=== PATIENT | female | born 1925 | race Caucasian/White ===

== ENCOUNTER 2016-10-11 15:15 | Inpatient (IN) | payer MEDICARE, OTHER ==
[2016-10-11] MEDS ORDERED: SODIUM CHLORIDE 0.9% 1,000 ML IV STA (15:49)
[2016-10-11 16:14] LABS: Basophils % (A) 0 %; CH 28.5; CHCM 31.1; Eosinophils # (A) 0.1 k/uL (0-0.7); Eosinophils % (A) 1 %; HCT 42.9 % (34.0-46.0); HDW 2.38; HGB 13.5 gm/dL (11.4-16.0); Hypochromasia Slight; Luc # (Auto) 0.09; Luc % (Auto) 1; Lymphocytes # (A) 0.9 k/uL (1.0-4.8); Lymphocytes % (A) 9 %; MCH 28.9 pg (25.0-35.0); MCHC 31.4 g/dL (31.0-37.0); Mean Platelet Volume 6.9; Monocytes # (A) 0.5 k/uL (0-1.0); Monocytes % (A) 5 %; Neutrophils # (A) 8.5 k/uL (1.3-7.7); Neutrophils % (A) 84 %; RBC 4.66 m/uL (3.80-5.40); RDW 14.5 % (11.5-15.5); WBC 10.1 k/uL (3.8-10.6); WBC (Perox) 9.95
--- NOTE | 2016-10-11 16:16 | ED ---
General Adult HPI - General Chief complaint: Extremity Injury, Lower Stated complaint: Fall Time Seen by Provider: 10/11/16 15:40 Source: patient, family, RN notes reviewed, old records reviewed Mode of arrival: EMS Limitations: altered mental status - History of Present Illness Initial comments: This is a 89-year-old female who ER for evaluation. Patient brought in the ER for evaluation of multiple issues multiple falls weakness debility incontinence. Patient has multiple falls of recent, hip pain and bilateral ankle pain. Patient herself is unable to contribute to the history history is obtained from her who is at bedside. - Related Data Home Medications Medication Instructions Recorded Confirmed Acetaminophen Tab [Tylenol] 500 mg PO Q4H PRN 11/19/13 10/11/16 Aspirin 81 mg PO HS 11/19/13 10/11/16 Cholecalciferol [Vitamin D3] 400 unit PO DAILY@1200 11/19/13 10/11/16 Levothyroxine Sodium [Synthroid] 50 mcg PO DAILY 11/19/13 10/11/16 Memantine [Namenda] 5 mg PO BID 11/19/13 10/11/16 Sertraline [Zoloft] 50 mg PO DAILY 11/19/13 10/11/16 Clotrimazole/Betameth Cream 1 applic TOPICAL DAILY 01/09/14 10/11/16 [Lotrisone Cream] Dexlansoprazole [Dexilant] 60 mg PO DAILY 10/11/16 10/11/16 HYDROcodone/APAP 10-325MG [Issue 1 tab PO Q6H PRN 10/11/16 10/11/16 10-325] Metoprolol Tartrate 25 mg PO DAILY 10/11/16 10/11/16 Nystatin 100,000Unit/gm Cream 1 applic TOPICAL BID 10/11/16 10/11/16 [Mycostatin Cream] Potassium Chloride [Klor-Con 20] 20 meq PO DAILY 10/11/16 10/11/16 Previous Rx's Medication Instructions Recorded Docusate [Colace] 100 mg PO DAILY #30 capsule 11/19/13 Allergies Allergy/AdvReac Type Severity Reaction Status Date / Time codeine Allergy Unknown Verified 10/11/16 16:02 Review of Systems ROS Statement: Those systems with pertinent positive or pertinent negative responses have been documented in the HPI. ROS Other: All systems not noted in ROS Statement are negative. Past Medical History Past Medical History: CVA/TIA, Dementia, GERD/Reflux, Musculoskeletal Disorder, Pneumonia, Rheumatoid Arthritis (RA), Thyroid Disorder Additional Past Medical History / Comment(s): 2013 HEAD INJURY, SHINGLES (RT EYE )SINUS PROBLEMS,PNEUMOTHORAX, UTI, URINARY INCONTINENCE,ARTHRITIS, kidney stones , fx vertebrea History of Any Multi-Drug Resistant Organisms: MRSA Date of last positivie culture/infection: 11-26-13 MDRO Source:: Urine Past Surgical History: Appendectomy, Cholecystectomy Additional Past Surgical History / Comment(s): VEIN STRIPPING, CATARACTS, BUNIONECTOMY Past Anesthesia/Blood Transfusion Reactions: No Reported Reaction Past Psychological History: No Psychological Hx Reported Smoking Status: Never smoker Past Alcohol Use History: None Reported Past Drug Use History: None Reported General Exam Limitations: altered mental status General appearance: alert, in no apparent distress Head exam: Present: atraumatic, normocephalic, normal inspection Eye exam: Present: normal appearance, PERRL, EOMI. Absent: scleral icterus, conjunctival injection, periorbital swelling ENT exam: Present: normal exam, mucous membranes moist Neck exam: Present: normal inspection. Absent: tenderness, meningismus, lymphadenopathy Respiratory exam: Present: normal lung sounds bilaterally. Absent: respiratory distress, wheezes, rales, rhonchi, stridor Cardiovascular Exam: Present: regular rate, normal rhythm, normal heart sounds. Absent: systolic murmur, diastolic murmur, rubs, gallop, clicks GI/Abdominal exam: Present: soft, normal bowel sounds. Absent: distended, tenderness, guarding, rebound, rigid Extremities exam: Present: normal inspection, full ROM, normal capillary refill , other (Swelling and erythema, ecchymosis to right ankle). Absent: tenderness , pedal edema, joint swelling, calf tenderness Back exam: Present: normal inspection Neurological exam: Present: alert, oriented X3, CN II-XII intact Psychiatric exam: Present: normal affect, normal mood Skin exam: Present: warm, dry, intact, normal color. Absent: rash Course Vital Signs 10/11/16 10/11/16 15:31 17:18 Temperature 98.3 F Pulse Rate 98 92 Respiratory 16 18 Rate Blood Pressure 122/67 137/56 O2 Sat by Pulse 94 L 95 Oximetry - Reevaluation(s) Reevaluation #1: 10/11/16 17:50 Patient is unable to ambulate, complaining of severe ankle pain, severe back pain Medical Decision Making - Medical Decision Making 89 female ER with frequent falls, patient sustaining right ankle fracture compression fractures of lumbar spine. There is also found to have urinary tract infection, will admit for pain control and orthopedic evaluation and IV antibiotics - Lab Data Result diagrams: 10/11/16 16:03 10/11/16 16:03 Lab Results 10/11/16 10/11/16 10/11/16 Range/Units 16:03 16:03 16:03 WBC 10.1 (3.8-10.6) k/uL RBC 4.66 (3.80-5.40) m/uL Hgb 13.5 (11.4-16.0) gm/dL Hct 42.9 (34.0-46.0) % MCV 92.0 (80.0-100.0) fL MCH 28.9 (25.0-35.0) pg MCHC 31.4 (31.0-37.0) g/dL RDW 14.5 (11.5-15.5) % Plt Count 250 (150-450) k/uL Neutrophils % 84 % Lymphocytes % 9 % Monocytes % 5 % Eosinophils % 1 % Basophils % 0 % Neutrophils # 8.5 H (1.3-7.7) k/uL Lymphocytes # 0.9 L (1.0-4.8) k/uL Monocytes # 0.5 (0-1.0) k/uL Eosinophils # 0.1 (0-0.7) k/uL Basophils # 0.0 (0-0.2) k/uL Hypochromasia Slight PT (9.0-12.0) sec INR (<1.1) APTT (22.0-30.0) sec Sodium 141 (137-145) mmol/L Potassium 4.1 (3.5-5.1) mmol/L Chloride 103 (98-107) mmol/L Carbon Dioxide 29 (22-30) mmol/L Anion Gap 9 mmol/L BUN 17 (7-17) mg/dL Creatinine 0.80 (0.52-1.04) mg/dL Est GFR (MDRD) Af Amer >60 (>60 ml/min/1.73 sqM) Est GFR (MDRD) Non-Af >60 (>60 ml/min/1.73 sqM) Glucose 128 H (74-99) mg/dL Calcium 10.1 (8.4-10.2) mg/dL Phosphorus 3.2 (2.5-4.5) mg/dL Magnesium 1.8 (1.6-2.3) mg/dL Total Bilirubin 0.9 (0.2-1.3) mg/dL AST 30 (14-36) U/L ALT 34 (9-52) U/L Alkaline Phosphatase 41 (38-126) U/L Total Creatine Kinase 114 (30-135) U/L CK-MB (CK-2) 1.5 (0.0-2.4) ng/mL CK-MB (CK-2) Rel Index 1.3 Troponin I <0.012 (0.000-0.034) ng/mL Total Protein 6.9 (6.3-8.2) g/dL Albumin 3.9 (3.5-5.0) g/dL TSH 1.540 (0.465-4.680) mIU/L Urine Color Urine Appearance (Clear) Urine pH (5.0-8.0) Ur Specific [place] (1.001-1.035) Urine Protein (Negative) Urine Glucose (UA) (Negative) Urine Ketones (Negative) Urine Blood (Negative) Urine Nitrite (Negative) Urine Bilirubin (Negative) Urine Urobilinogen (<2.0) mg/dL Ur Leukocyte Esterase (Negative) Urine RBC (0-5) /hpf Urine WBC (0-5) /hpf Ur Squamous Epith Cells (0-4) /hpf Urine Bacteria (None) /hpf 10/11/16 10/11/16 Range/Units 16:03 17:17 WBC (3.8-10.6) k/uL RBC (3.80-5.40) m/uL Hgb (11.4-16.0) gm/dL Hct (34.0-46.0) % MCV (80.0-100.0) fL MCH (25.0-35.0) pg MCHC (31.0-37.0) g/dL RDW (11.5-15.5) % Plt Count (150-450) k/uL Neutrophils % % Lymphocytes % % Monocytes % % Eosinophils % % Basophils % % Neutrophils # (1.3-7.7) k/uL Lymphocytes # (1.0-4.8) k/uL Monocytes # (0-1.0) k/uL Eosinophils # (0-0.7) k/uL Basophils # (0-0.2) k/uL Hypochromasia PT 10.2 (9.0-12.0) sec INR 1.0 (<1.1) APTT 20.3 L (22.0-30.0) sec Sodium (137-145) mmol/L Potassium (3.5-5.1) mmol/L Chloride (98-107) mmol/L Carbon Dioxide (22-30) mmol/L Anion Gap mmol/L BUN (7-17) mg/dL Creatinine (0.52-1.04) mg/dL Est GFR (MDRD) Af Amer (>60 ml/min/1.73 sqM) Est GFR (MDRD) Non-Af (>60 ml/min/1.73 sqM) Glucose (74-99) mg/dL Calcium (8.4-10.2) mg/dL Phosphorus (2.5-4.5) mg/dL Magnesium (1.6-2.3) mg/dL Total Bilirubin (0.2-1.3) mg/dL AST (14-36) U/L ALT (9-52) U/L Alkaline Phosphatase (38-126) U/L Total Creatine Kinase (30-135) U/L CK-MB (CK-2) (0.0-2.4) ng/mL CK-MB (CK-2) Rel Index Troponin I (0.000-0.034) ng/mL Total Protein (6.3-8.2) g/dL Albumin (3.5-5.0) g/dL TSH (0.465-4.680) mIU/L Urine Color Yellow Urine Appearance Cloudy H (Clear) Urine pH 5.5 (5.0-8.0) Ur Specific [place] 1.015 (1.001-1.035) Urine Protein Trace H (Negative) Urine Glucose (UA) Negative (Negative) Urine Ketones Negative (Negative) Urine Blood Trace H (Negative) Urine Nitrite Negative (Negative) Urine Bilirubin Negative (Negative) Urine Urobilinogen <2.0 (<2.0) mg/dL Ur Leukocyte Esterase Large H (Negative) Urine RBC 10 H (0-5) /hpf Urine WBC 39 H (0-5) /hpf Ur Squamous Epith Cells 4 (0-4) /hpf Urine Bacteria Many H (None) /hpf Disposition Clinical Impression: UTI (urinary tract infection), Weakness, Falls frequently, Mechanical back pain , Lumbar compression fracture, Closed right ankle fracture Disposition: ADMITTED IP TO THIS HOSP Condition: Fair Referrals: Bear Olvera DO [Primary Care Provider] - 1-2 days
[2016-10-11 16:30] LABS: Prothrombin Time 10.2 sec (9.0-12.0)
[2016-10-11 16:35] LABS: ALT 34 U/L (9-52); AST 30 U/L (14-36); Alkaline Phosphatase 41 U/L (38-126); Anion Gap 9 mmol/L; Blood Urea Nitrogen 17 mg/dL (7-17); Calcium 10.1 mg/dL (8.4-10.2); Carbon Dioxide 29 mmol/L (22-30); Chloride 103 mmol/L (98-107); Glucose 128 mg/dL (74-99); Magnesium 1.8 mg/dL (1.6-2.3); Non-African American GFR(MDRD) >60 (>60 ml/min/1.73 sqM); Phosphorous 3.2 mg/dL (2.5-4.5); Potassium 4.1 mmol/L (3.5-5.1); Sodium 141 mmol/L (137-145); Total Bilirubin 0.9 mg/dL (0.2-1.3); Total Protein 6.9 g/dL (6.3-8.2)
[2016-10-11 16:41] LABS: Creatine Kinase 114 U/L (30-135)
[2016-10-11 16:49] LABS: Partial Thromboplastin Time 20.3 sec (22.0-30.0)
[2016-10-11 16:54] LABS: Creatine Kinase MB 1.5 ng/mL (0.0-2.4); Troponin I <0.012 ng/mL (0.000-0.034)
--- NOTE | 2016-10-11 17:14 | XR ---
EXAMINATION TYPE: XR chest 2V DATE OF EXAM: 10/11/2016 5:09 PM COMPARISON: 01/11/2014 HISTORY: Pain TECHNIQUE: Frontal and lateral views of the chest are obtained. FINDINGS: There is a poor inspiration. There is some infiltrate and atelectasis at the lung bases. T here is large hiatal hernia. There is no heart failure. IMPRESSION: Hiatal hernia. Mild infiltrate and atelectasis at the lung bases is worse than last exam . Old healed left-sided rib fractures noted. No pneumothorax.
--- NOTE | 2016-10-11 17:16 | XR ---
EXAMINATION TYPE: XR ankle complete bilateral DATE OF EXAM: 10/11/2016 5:09 PM COMPARISON: NONE HISTORY: Pain after a fall TECHNIQUE: 6 views FINDINGS: There is nondisplaced fracture of the distal fibula of the right ankle. There is right-side d soft tissue swelling. There is no dislocation. There are bilateral plantar and Achilles calcaneal s purs. There is bilateral spurring at the talonavicular joint. I see no definite fracture of the left ankle. There is some osteopenia around both ankle joints. IMPRESSION: Acute fracture of the right distal fibula. Soft tissue swelling. Osteopenia.
--- NOTE | 2016-10-11 17:19 | XR ---
EXAMINATION TYPE: XR knee complete bilateral DATE OF EXAM: 10/11/2016 5:09 PM COMPARISON: NONE HISTORY: Pain after a fall TECHNIQUE: 6 views FINDINGS: There is narrowing of all the joint spaces. There is calcification of the menisci. There is mild bilateral genu valgus. There is a right sided knee joint effusion. I see no definite fracture. IMPRESSION: Moderate osteoarthritis and chondrocalcinosis. Right knee joint effusion. No fracture see n.
--- NOTE | 2016-10-11 17:21 | XR ---
EXAMINATION TYPE: XR pelvis AP view DATE OF EXAM: 10/11/2016 5:09 PM COMPARISON: 03/17/2015 HISTORY: Pain TECHNIQUE: 2 views FINDINGS: The pelvic ring appears intact. There is moderate narrowing of the hip joint spaces with sp ur formation. Sacroiliac joints are normal. There is a 1 cm calcification in the pelvis to the right of midline of uncertain significance. IMPRESSION: No fracture. Moderate osteoarthritis in the hip joints. No change compared to old exam.
--- NOTE | 2016-10-11 17:23 | XR ---
EXAMINATION TYPE: XR lumbosacral spine min 4V DATE OF EXAM: 10/11/2016 5:09 PM COMPARISON: NONE HISTORY: Low back pain TECHNIQUE: 5 views FINDINGS: There is 1 cm anterior subluxation of L5 in relation to S1. There is 10% compression deform ity of L4. There is 25% anterior wedging of L3. There is 70% wedging of L2 with old vertebroplasty. T here is 75% anterior wedging of L1. The sacroiliac joints appear normal. There is osteopenia. Abdomin al aorta is atheromatous. IMPRESSION: There is a degenerative first-degree L5-S1 spondylolisthesis. Multiple compression fractu res. There is progression of the compression fracture at L1 compared to old exam. There are new fract ures at L3 and L4.
[2016-10-11] MEDS ORDERED: MORPHINE SULFATE 4 MG/ML SYRINGE IVP STA (17:33)
[2016-10-11 17:41] LABS: Appearance,Urine Cloudy (Clear); Bacteria,Urine Many /hpf; Bilirubin,Urine Negative (Negative); Glucose,Urine (UA) Negative (Negative); Ketones,Urine Negative (Negative); Leukocyte Esterase,Urine Large (Negative); Nitrite,Urine Negative (Negative); PH, Urine 5.5 (5.0-8.0); Particle Count 32461; Protein,Urine Trace (Negative); RBC,Urine 10 /hpf (0-5); Specific Gravity,Urine 1.015 (1.001-1.035); Squamous Epithelial Cell,Urine 4 /hpf (0-4); UA Billing (MACRO vs. MICRO) MICRO; Urobilinogen,Urine <2.0 mg/dL (<2.0); WBC,Urine 39 /hpf (0-5)
[2016-10-11] MEDS ORDERED: MORPHINE SULFATE 4 MG/ML SYRINGE IVP PRN (17:50)
[2016-10-11] MEDS ORDERED: SODIUM CHLORIDE 0.9% 1,000 ML IV ONE (17:51)
[2016-10-11] MEDS ORDERED: HYDROcodone/APAP 10-325MG 1 EACH TAB PO PRN (20:13)
[2016-10-11] MEDS: NYSTATIN 100,000UNIT/GM CREAM 30 GM TUBE TOPICAL SCH (21:09)
[2016-10-11] MEDS: MEMANTINE 5 MG TAB PO SCH (21:09)
[2016-10-11] MEDS: HYDROmorphone 1 MG/ML 1 ML SYRINGE IVP PRN (22:00)
[2016-10-12] MEDS: HYDROmorphone 1 MG/ML 1 ML SYRINGE IVP PRN ×3 (01:17→18:16)
[2016-10-12] MEDS: LEVOTHYROXINE 50 MCG TAB PO SCH (04:53)
[2016-10-12] MEDS ORDERED: cefTRIAXone 1,000 MG in SODIUM CHLORIDE 0.9% 100 ML IVPB SCH (09:00)
[2016-10-12] MEDS: METOPROLOL TARTRATE 25 MG TAB PO SCH (09:23)
[2016-10-12] MEDS: CHOLECALCIFEROL 400 UNIT TAB PO SCH (10:03)
[2016-10-12] MEDS: MEMANTINE 5 MG TAB PO SCH ×2 (10:04→21:00)
[2016-10-12] MEDS: SERTRALINE 50 MG TAB PO SCH (10:04)
[2016-10-12] MEDS: DOCUSATE 100 MG CAP PO SCH (10:04)
[2016-10-12] MEDS: PANTOPRAZOLE 40 MG TABLET PO SCH (10:04)
--- NOTE | 2016-10-12 10:23 | P.CNOR ---
History of Present Illness - [facility] Consult date: 10/12/16 Consult reason: fracture (Compression fractures lumbar spine, right distal fibula fracture) History of present illness: This is an 89-year-old female admitted through the emergency department yesterday after falling and sustaining injury to her low back and right ankle. On exam and x-ray in the emergency department she was found to have multiple compression deformities to the lumbar spine as well as a right distal fibular fracture. She is admitted to internal medicine and we are consulted for orthopedic evaluation. She has history of kyphoplasty of L2 the past with Dr. Son. Past Medical History Past Medical History: CVA/TIA, Dementia, GERD/Reflux, Musculoskeletal Disorder, Pneumonia, Rheumatoid Arthritis (RA), Thyroid Disorder Additional Past Medical History / Comment(s): 2013 HEAD INJURY, SHINGLES (RT EYE )SINUS PROBLEMS,PNEUMOTHORAX, UTI, URINARY INCONTINENCE,ARTHRITIS, kidney stones , fx vertebrea History of Any Multi-Drug Resistant Organisms: MRSA Year Discovered:: 11-26-13 MDRO Source:: Urine Past Surgical History: Appendectomy, Cholecystectomy Additional Past Surgical History / Comment(s): VEIN STRIPPING, CATARACTS, BUNIONECTOMY Past Anesthesia/Blood Transfusion Reactions: No Reported Reaction Past Psychological History: No Psychological Hx Reported Smoking Status: Never smoker Past Alcohol Use History: None Reported Past Drug Use History: None Reported Medications and Allergies Home Medications Medication Instructions Recorded Confirmed Type Acetaminophen Tab [Tylenol] 500 mg PO Q4H PRN 11/19/13 10/11/16 History Aspirin 81 mg PO HS 11/19/13 10/11/16 History Cholecalciferol [Vitamin D3] 400 unit PO DAILY@1200 11/19/13 10/11/16 History Levothyroxine Sodium [Synthroid] 50 mcg PO DAILY 11/19/13 10/11/16 History Memantine [Namenda] 5 mg PO BID 11/19/13 10/11/16 History Sertraline [Zoloft] 50 mg PO DAILY 11/19/13 10/11/16 History Clotrimazole/Betameth Cream 1 applic TOPICAL DAILY 01/09/14 10/11/16 History [Lotrisone Cream] Dexlansoprazole [Dexilant] 60 mg PO DAILY 10/11/16 10/11/16 History HYDROcodone/APAP 10-325MG [[place] 1 tab PO Q6H PRN 10/11/16 10/11/16 History 10-325] Metoprolol Tartrate 25 mg PO DAILY 10/11/16 10/11/16 History Nystatin 100,000Unit/gm Cream 1 applic TOPICAL BID 10/11/16 10/11/16 History [Mycostatin Cream] Potassium Chloride [Klor-Con 20] 20 meq PO DAILY 10/11/16 10/11/16 History Allergies Allergy/AdvReac Type Severity Reaction Status Date / Time codeine Allergy Unknown Verified 10/11/16 16:02 Physical Examination This is a pleasant 89-year-old female in no acute distress. She is alert with some confusion. She is lying on her right side and appears fairly comfortable. Exam of the head and neck is unremarkable. There is no pain to palpation about cervical spine or paraspinal musculature. Exam of the lumbar spine reveals tenderness about the lower lumbar region. There is minimal tenderness to palpation about the thoracic spine and upper lumbar spine. Exam of the lower extremities reveals a splint in place to the right lower extremity. She has full toe motion without difficulty or pain. There is no hip irritability noted. Neurovascular status to the lower extremities is intact. Results X-rays of the pelvis reveals no fractures. She has minor degenerative arthritis to bilateral hips. X-ray of the knees reveals moderate to severe degenerative arthritis bilaterally. No acute fractures identified. X-ray of the lumbar spine reveals compression deformities to L1 L3 and L4. There is evidence of kyphoplasty of L2. There is anterolisthesis of L5 on S1. X-ray of the right ankle reveals a minimally displaced distal fibular fracture. - Labs Result Diagrams: 10/11/16 16:03 10/11/16 16:03 Assessment and Plan (1) Closed right ankle fracture Status: Acute (2) Falls frequently Status: Acute (3) Lumbar compression fracture Status: Acute (4) UTI (urinary tract infection) Status: Acute (5) Back pain Status: Acute Plan: The clinical and exercises are discussed the patient and her . I have recommended a lumbar brace which knee has been refusing at this point. He states that she will not tolerate her brace. He is requesting that she undergo kyphoplasty. I will consult Dr. Son for further evaluation. With regard to the ankle fracture, she'll be placed in an equalizer boot for immobilization. She may bear weight as tolerated in the boot with a walker. She may resume her diet today. I will make further recommendations after reviewing the case with Dr. Son.
[2016-10-12] MEDS: ACETAMINOPHEN TAB 500 MG TAB PO PRN ×2 (11:21→18:03)
[2016-10-12 11:29] VITALS: BMI 26.6
--- NOTE | 2016-10-12 12:41 | P.HPIM ---
History of Present Illness H&P Date: 10/12/16 Chief Complaint: Fall/Right Fibula Fracture/UTI This is an 89-year-old female one of Dr. Olvera with a previous medical history significant for hypertension and hypertensive cardiovascular disease, os process, multiple compression fracture with prior kyphoplasty, recurrent UTI, vascular dementia, patient was in her usual state of health about last Friday when she fell at home and bruised herself, her assisted her that time. Patient did not have any significant pain, yesterday the patient was going to the bathroom and while she was in the bathroom she stood up using the the assisted bars and her was trying to pull up her brief, where the patient lost strength in her leg and she sat on her right leg she suffered from significant pain at that time. Patient ended up coming to the ER at [facility] via EMS and she was found to have a right distal fibular fracture and multiple compression fracture in the back, patient was seen and evaluated by orthopedic surgery and spine surgery,it was recommended for the patient to be in a boot, and to see spine surgery on Friday to see the patient can be a candidate for cement kyphoplasty, patient also was found to have a UTI her urine was sent for culture and she was started on Rocephin 1 g IV piggyback every day, upon talking to the he stated that the patient has been dealing with urinary tract infections quite along with multiple resistant bacteria in the past . Review of Systems Constitutional: Reports chronic pain, Reports fatigue, Reports weakness, Denies anorexia, Denies lethargy, Denies weight loss Eyes: denies blurred vision, denies bulging eye, denies decreased vision Ears: bilateral: decreased hearing Ears, nose, mouth and throat: Denies dysphagia, Denies neck lump, Denies swelling in throat, Denies sore throat Cardiovascular: Reports dyspnea on exertion, Reports high blood pressure, Denies chest pain, Denies decreased exercise tolerance, Denies phlebitis, Denies rapid heart beat, Denies shortness of breath, Denies syncope Respiratory: Reports dyspnea, Denies congestion, Denies cough, Denies cough with sputum, Denies home oxygen, Denies sleep apnea, Denies snoring, Denies wheezing Gastrointestinal: Denies abdominal pain, Denies bloating, Denies BRBPR, Denies change in bowel habits, Denies hematemesis, Denies melena, Denies nausea, Denies vomiting Genitourinary: Denies dysuria, Denies hematuria Menstruation: Reports postmenopausal Musculoskeletal: Reports fractures, Reports frequent falls, Reports gait dysfunction, Reports loss of height, Reports low back pain Musculoskeletal: right: ankle pain, ankle stiffness, ankle swelling, absent: elbow pain, elbow stiffness, elbow swelling, foot pain, foot stiffness, foot swelling, hand pain, hand stiffness, hand swelling, hip pain, hip stiffness, hip swelling, knee pain, knee stiffness, knee swelling, shoulder pain, shoulder stiffness, shoulder swelling, wrist pain, wrist stiffness, wrist swelling Integumentary: Denies pruritus, Denies rash Neurological: Reports balance difficulties, Reports gait dysfunction, Reports memory loss, Reports weakness, Denies tremors, Denies vertigo, Denies visual changes Psychiatric: Denies anxiety, Denies depression Endocrine: Denies fatigue, Denies weight change Past Medical History Past Medical History: CVA/TIA, Dementia, GERD/Reflux, Hypertension, Musculoskeletal Disorder, Pneumonia, Rheumatoid Arthritis (RA), Thyroid Disorder Additional Past Medical History / Comment(s): 2013 HEAD INJURY, SHINGLES (RT EYE )SINUS PROBLEMS,PNEUMOTHORAX, UTI, URINARY INCONTINENCE,ARTHRITIS, kidney stones , fx vertebrea History of Any Multi-Drug Resistant Organisms: MRSA Date of last positivie culture/infection: 11-26-13 MDRO Source:: Urine Past Surgical History: Appendectomy, Cholecystectomy Additional Past Surgical History / Comment(s): VEIN STRIPPING, CATARACTS, BUNIONECTOMY, multiple kyphoplasty's Past Anesthesia/Blood Transfusion Reactions: No Reported Reaction Past Psychological History: No Psychological Hx Reported Smoking Status: Never smoker Past Alcohol Use History: None Reported Past Drug Use History: None Reported - Past Family History Mother Family Medical History: CVA/TIA (Mother at age 93 from CVA while she was a senior living and developed wrist fracture.) Father Family Medical History: No Reported History (Father age of 74 from perforated viscus with septicemia.) Brother(s) Family Medical History: No Reported History (Patient has 2 stepbrothers no major medical problems.) Sister(s) Family Medical History: No Reported History (Patient has one stepsister no major medical problems.) Son(s) Family Medical History: No Reported History (Patient has 2 sons no major medical problems.) Medications and Allergies Home Medications Medication Instructions Recorded Confirmed Type Acetaminophen Tab [Tylenol] 500 mg PO Q4H PRN 11/19/13 10/11/16 History Aspirin 81 mg PO HS 11/19/13 10/11/16 History Cholecalciferol [Vitamin D3] 400 unit PO DAILY@1200 11/19/13 10/11/16 History Levothyroxine Sodium [Synthroid] 50 mcg PO DAILY 11/19/13 10/11/16 History Memantine [Namenda] 5 mg PO BID 11/19/13 10/11/16 History Sertraline [Zoloft] 50 mg PO DAILY 11/19/13 10/11/16 History Clotrimazole/Betameth Cream 1 applic TOPICAL DAILY 01/09/14 10/11/16 History [Lotrisone Cream] Dexlansoprazole [Dexilant] 60 mg PO DAILY 10/11/16 10/11/16 History HYDROcodone/APAP 10-325MG [[place] 1 tab PO Q6H PRN 10/11/16 10/11/16 History 10-325] Metoprolol Tartrate 25 mg PO DAILY 10/11/16 10/11/16 History Nystatin 100,000Unit/gm Cream 1 applic TOPICAL BID 10/11/16 10/11/16 History [Mycostatin Cream] Potassium Chloride [Klor-Con 20] 20 meq PO DAILY 10/11/16 10/11/16 History Allergies Allergy/AdvReac Type Severity Reaction Status Date / Time codeine Allergy Unknown Verified 10/11/16 16:02 Physical Exam Vitals: Vital Signs Temp Pulse Pulse Resp BP BP Pulse Ox 10/12/16 02:23 97.9 F 111 H 16 115/55 92 L 10/11/16 20:00 103 H 10/11/16 19:38 98.3 F 103 H 18 98/64 94 L 10/11/16 19:01 98.3 F 87 109/65 96 10/11/16 18:20 98.2 F 82 15 104/67 90 L 10/11/16 18:11 97.7 F 82 17 159/72 96 Intake and Output 10/11/16 10/12/16 10/12/16 22:59 06:59 14:59 Intake Total 450 700 Balance 450 700 Intake: Intake, IV Titration 350 700 Amount Sodium Chloride 0.9% 1, 350 700 000 ml @ 100 mls/hr IV . Q10H ONE Rx#:[id number] Oral 100 Other: Voiding Method Diaper Incontinent # Voids 1 2 - Constitutional General appearance: average body habitus, no acute distress - EENT Eyes: anicteric sclerae, EOMI, PERRLA, no ptosis, no scleral icterus, normal appearance ENT: hard of hearing, normal oropharynx, no thrush Ears: bilateral: normal - Neck Neck: no lymphadenopathy, normal ROM, no rigidity, no stridor, no thyromegaly Carotids: bilateral: upstroke normal Thyroid: bilateral: normal size - Respiratory Respiratory: bilateral: diminished, negative: dullness, rales, rhonchi, wheezing , prolonged expiration, prolonged inspiration - Cardiovascular Heart sounds: normal: S1, S2 Abnormal Heart Sounds: systolic murmur, no S3 Gallop, no S4 Gallop - Gastrointestinal General gastrointestinal: normal bowel sounds, soft, no splenomegaly, no tenderness, no umbilical hernia, no ventral hernia - Integumentary Integumentary: no cyanotic, normal, normal turgor - Neurologic Neurologic: CNII-XII intact - Musculoskeletal Musculoskeletal: generalized weakness, strength equal bilaterally - Psychiatric Psychiatric: A&O x's 3, appropriate affect, no intact judgment & insight Results CBC & Chem 7: 10/11/16 16:03 10/11/16 16:03 Thrombosis Risk Factor Assmnt - DVT/VTE Prophylaxis DVT/VTE Prophylaxis: Pharmacologic Prophylaxis ordered - Choose All That Apply Any of the Below Risk Factors Present?: Yes Each Factor Represents 1 point: Medical pt on bed rest Other Risk Factors: Yes Each Risk Factor Represents 2 Points: Patient confined to bed Each Risk Factor Represents 3 Points: Age 75 years or older Each Risk Factor Represents 5 Points: Hip, pelvis, or leg fracture (< 1 month) Thrombosis Risk Factor Assessment Total Risk Factor Score: 11 Thrombosis Risk Factor Assessment Level: High Risk Assessment and Plan Plan: Assessment and plan: 1. Right distal fibular fracture. Likely patient would benefit from a Boot after discussion with orthopedic surgery, there is no indication for any surgical intervention at this point in time, continue day venous verbose prophylaxis with Lovenox 40 mg subcutaneously every 24 hours, continue current pain management, patient is comfortable. 2. Multiple lumbar vertebral fractures L1 L3 and L4. Patient will see Dr. Son for possible cement kyphoplasty. 3. Hypertension and hypertensive cardiovascular disease. Continue metoprolol 25 mg orally once every day. 4. Severe GERD with esophagitis. Continue with Protonix 40 mg orally once every day. 5. Hypothyroidism. Continue Synthroid 50 g orally once every day. 6. CVA. Continue patient on aspirin 81 mg orally once every day. 7. Rheumatoid arthritis by history not taken any DMARD. 8. Vascular dementia. Continue Namenda 5 mg orally twice every day. 9. Depression/anxiety. Continue sertraline 50 mg orally once every day. 10. UTI . Continue Rocephin until the final result of the culture. 11. Vitamin D deficiency. Continue vitamin D supplement. 12. DVT prophylaxis. Continue Lovenox 40 mg subcutaneously every 24 hours. 13. GI prophylaxis. Continue Protonix 40 mg orally once every day. 14. Patient is full code. 15. Inpatient. Estimate a length of stay 2 midnights.
[2016-10-12] MEDS: ENOXAPARIN 40 MG/0.4 ML SYRINGE SQ SCH (16:48)
[2016-10-12] MEDS: NYSTATIN 100,000UNIT/GM CREAM 30 GM TUBE TOPICAL SCH ×2 (18:59→21:01)
[2016-10-12] MEDS: CLOTRIMAZOLE/BETAMETH 1-0.05% CREAM 45 GM TUBE TOPICAL SCH (18:59)
[2016-10-13] MEDS: LEVOTHYROXINE 50 MCG TAB PO SCH (05:40)
[2016-10-13 08:42] LABS: Basophils % (A) 0 %; CH 28.9; Eosinophils # (A) 0.2 k/uL (0-0.7); Eosinophils % (A) 2 %; HCT 35.9 % (34.0-46.0); HDW 2.38; HGB 10.9 gm/dL (11.4-16.0); Hypochromasia Slight; Luc # (Auto) 0.08; Luc % (Auto) 1; Lymphocytes # (A) 0.7 k/uL (1.0-4.8); Lymphocytes % (A) 10 %; MCH 28.3 pg (25.0-35.0); MCHC 30.3 g/dL (31.0-37.0); MCV 93.5 fL (80.0-100.0); Mean Platelet Volume 7.1; Monocytes # (A) 0.4 k/uL (0-1.0); Monocytes % (A) 5 %; Neutrophils # (A) 5.9 k/uL (1.3-7.7); Neutrophils % (A) 81 %; RBC 3.84 m/uL (3.80-5.40); RDW 14.6 % (11.5-15.5); WBC 7.3 k/uL (3.8-10.6)
[2016-10-13 09:00] LABS: ALT 36 U/L (9-52); AST 32 U/L (14-36); Alkaline Phosphatase 34 U/L (38-126); Anion Gap 8 mmol/L; Blood Urea Nitrogen 15 mg/dL (7-17); Calcium 8.8 mg/dL (8.4-10.2); Carbon Dioxide 26 mmol/L (22-30); Chloride 106 mmol/L (98-107); Glucose 81 mg/dL (74-99); Non-African American GFR(MDRD) >60 (>60 ml/min/1.73 sqM); Potassium 3.6 mmol/L (3.5-5.1); Sodium 140 mmol/L (137-145); Total Bilirubin 1.3 mg/dL (0.2-1.3)
[2016-10-13] MEDS: CHOLECALCIFEROL 400 UNIT TAB PO SCH (09:40)
[2016-10-13] MEDS: MEMANTINE 5 MG TAB PO SCH ×2 (09:40→19:17)
[2016-10-13] MEDS: ENOXAPARIN 40 MG/0.4 ML SYRINGE SQ SCH (09:40)
[2016-10-13] MEDS: METOPROLOL TARTRATE 25 MG TAB PO SCH (09:40)
[2016-10-13] MEDS: PANTOPRAZOLE 40 MG TABLET PO SCH (09:40)
[2016-10-13] MEDS: SERTRALINE 50 MG TAB PO SCH (09:41)
--- NOTE | 2016-10-13 10:09 | P.PN ---
Subjective Principal diagnosis: Nondisplaced distal fibular fracture right ankle. Compression deformities lumbar spine. This is an 89-year-old female who we are following regarding her right distal fibula fracture and low back pain. The patient has not yet received her boot for the right ankle. She has no new complaints or concerns today. Vital signs are stable. Objective - Vital Signs Vital signs: Vital Signs Temp 98.6 F 10/13/16 02:14 Pulse 94 10/13/16 02:14 Resp 16 10/13/16 02:14 BP 112/60 10/13/16 02:14 Pulse Ox 93 L 10/13/16 07:33 Intake & Output 10/12/16 10/13/16 10/13/16 18:59 06:59 18:59 Intake Total 900 Output Total 500 Balance 400 Weight 72.575 kg Intake: Intake, IV Titration 900 Amount Sodium Chloride 0.9% 1, 900 000 ml @ 100 mls/hr IV . Q10H ONE Rx#:[id number] Output: Urine 500 Straight 500 Other: Voiding Method Diaper Indwelling Catheter Incontinent # Voids 2 # Bowel Movements 1 - Exam This is a pleasant 89-year-old female in no acute distress. She is alert with some confusion. Her is present at bedside. She is sitting up in a chair and appears fairly comfortable at this time. The short leg splint remains in place to the right lower extremity. She has full toe motion bilaterally. There is mild pain with palpation about the lower lumbar region. Neurovascular status to the lower extremities is intact. - Labs CBC & Chem 7: 10/13/16 07:39 10/13/16 07:39 Labs: Abnormal Lab Results - Last 24 Hours (Table) 10/13/16 10/13/16 Range/Units 07:39 07:39 Hgb 10.9 L (11.4-16.0) gm/dL MCHC 30.3 L (31.0-37.0) g/dL Lymphocytes # 0.7 L (1.0-4.8) k/uL Alkaline Phosphatase 34 L (38-126) U/L Total Protein 6.0 L (6.3-8.2) g/dL Albumin 3.2 L (3.5-5.0) g/dL Microbiology - Last 24 Hours (Table) 10/11/16 18:11 Blood Culture - Preliminary Blood No Growth after 24 hours Assessment and Plan (1) Closed right ankle fracture Status: Acute (2) Falls frequently Status: Acute (3) Lumbar compression fracture Status: Acute (4) UTI (urinary tract infection) Status: Acute (5) Back pain Status: Acute Plan: The clinical and exercises are discussed the patient and her . I have recommended a lumbar brace which knee has been refusing at this point. He states that she will not tolerate her brace. He is requesting kyphoplasty by Dr. Son. I have discussed the case with Dr. Son who will evaluate the patient later today. With regard to the ankle fracture, she'll be placed in an equalizer boot for immobilization. She may bear weight as tolerated in the boot with a walker.
--- NOTE | 2016-10-13 12:14 | P.CNOR ---
History of Present Illness - [facility] Consult date: 10/13/16 Consult reason: fracture History of present illness: Patient is a pleasant 89-year-old female who seen and examined today at bedside accompanied by her . The patient is known to our service. The patient apparently had a fall twice in the past week and presented yesterday to the emergency room after a fall the ambulance. Patient had some increased pain at her ankles and at her lower back. Patient has history of dementia and osteoporosis. She has a minimal ambulator and she transfers with significant assistance at home with the help of her . Her history is difficult due to her to mention that her is able answer most questions. Patient is responsive and pleasant She denies any fevers chills. She denies any chest pain shortness of breath. She says her back is doing well. She does not have significant pain right now. She says she had increased pain in her back at the time of her fall but it seems to be doing okay now. She has history of kyphoplasty couple of years ago at L2 and did well with that. She says she has pain at her right heel and ankle. She denies any other pains. Review of Systems Denies headaches denies loss consciousness denies chest pain short of breath. She has new pain at her right ankle. She feels her back is getting better. She has no abdominal pain nausea or vomiting. Past Medical History Past Medical History: CVA/TIA, Dementia, GERD/Reflux, Hypertension, Musculoskeletal Disorder, Pneumonia, Rheumatoid Arthritis (RA), Thyroid Disorder Additional Past Medical History / Comment(s): 2012 HEAD INJURY, SHINGLES (RT EYE )SINUS PROBLEMS,PNEUMOTHORAX, UTI, URINARY INCONTINENCE,ARTHRITIS, kidney stones , fx vertebrea History of Any Multi-Drug Resistant Organisms: MRSA Year Discovered:: 11-26-13 MDRO Source:: Urine Past Surgical History: Appendectomy, Cholecystectomy Additional Past Surgical History / Comment(s): VEIN STRIPPING, CATARACTS, BUNIONECTOMY, multiple kyphoplasty's Past Anesthesia/Blood Transfusion Reactions: No Reported Reaction Past Psychological History: No Psychological Hx Reported Smoking Status: Never smoker Past Alcohol Use History: None Reported Past Drug Use History: None Reported - Past Family History Mother Family Medical History: CVA/TIA (Mother at age 93 from CVA while she was a long term and developed wrist fracture.) Father Family Medical History: No Reported History (Father age of 74 from perforated viscus with septicemia.) Brother(s) Family Medical History: No Reported History (Patient has 2 stepbrothers no major medical problems.) Sister(s) Family Medical History: No Reported History (Patient has one stepsister no major medical problems.) Son(s) Family Medical History: No Reported History (Patient has 2 sons no major medical problems.) Medications and Allergies Home Medications Medication Instructions Recorded Confirmed Type Acetaminophen Tab [Tylenol] 500 mg PO Q4H PRN 11/19/13 10/11/16 History Aspirin 81 mg PO HS 11/19/13 10/11/16 History Cholecalciferol [Vitamin D3] 400 unit PO DAILY@1200 11/19/13 10/11/16 History Levothyroxine Sodium [Synthroid] 50 mcg PO DAILY 11/19/13 10/11/16 History Memantine [Namenda] 5 mg PO BID 11/19/13 10/11/16 History Sertraline [Zoloft] 50 mg PO DAILY 11/19/13 10/11/16 History Clotrimazole/Betameth Cream 1 applic TOPICAL DAILY 01/09/14 10/11/16 History [Lotrisone Cream] Dexlansoprazole [Dexilant] 60 mg PO DAILY 10/11/16 10/11/16 History HYDROcodone/APAP 10-325MG [[place] 1 tab PO Q6H PRN 10/11/16 10/11/16 History 10-325] Metoprolol Tartrate 25 mg PO DAILY 10/11/16 10/11/16 History Nystatin 100,000Unit/gm Cream 1 applic TOPICAL BID 10/11/16 10/11/16 History [Mycostatin Cream] Potassium Chloride [Klor-Con 20] 20 meq PO DAILY 10/11/16 10/11/16 History Allergies Allergy/AdvReac Type Severity Reaction Status Date / Time codeine Allergy Unknown Verified 10/11/16 16:02 Physical Examination Osteopathic Statement: *. No significant issues noted on an osteopathic structural exam other than those noted in the History and Physical/Consult. - Ankle & Foot right Ankle appearance: no other - L Spine: dermatomal strength & reflexes bilateral Strength: hip flexion: 5/5 (At her back she is nontender to palpation. She has well-healed small incision over kyphoplasty. She is nontender to percussion. She has good motion in her back. There is no crepitus.) Results - Labs Labs: Abnormal Lab Results - Last 24 Hours (Table) 10/13/16 10/13/16 Range/Units 07:39 07:39 Hgb 10.9 L (11.4-16.0) gm/dL MCHC 30.3 L (31.0-37.0) g/dL Lymphocytes # 0.7 L (1.0-4.8) k/uL Alkaline Phosphatase 34 L (38-126) U/L Total Protein 6.0 L (6.3-8.2) g/dL Albumin 3.2 L (3.5-5.0) g/dL Microbiology - Last 24 Hours (Table) 10/11/16 18:11 Blood Culture - Preliminary Blood No Growth after 24 hours H & H 10/13/16 Range/Units 07:39 Hgb 10.9 L (11.4-16.0) gm/dL Hct 35.9 (34.0-46.0) % Result Diagrams: 10/13/16 07:39 10/13/16 07:39 - Diagnostic results Ankle/Foot x-ray: report reviewed (X-rays of her bilateral ankles are reviewed. She has significant osteopenia. She has a minimally displaced distal malleolus fracture [place] a type. ), image reviewed Lumbar AP/lateral x-ray: report reviewed, image reviewed (X-rays of her lumbar spine are reviewed. She has significant osteopenia. She has prior kyphoplasty at L2 which is intact and stable. She has spondylolisthesis grade 2 at L5-S1 she has significant compression deformity at L4 L3 and L1. At L1 there is about 70% height loss at L3 and 4 there is about 50% height loss. L2 appears to be stable ) Assessment and Plan Plan: Status post falls 2 Right distal fibula fracture when we displaced, neurovascularly intact acute due to trauma Lumbar compression deformities of likely various degrees of healing. with new compression deformities at L1 and possibly at L3 and L4 and old compression fracture at L2 says was kyphoplasty Right ankle pain due to ankle fracture Spinal listhesis L5-S1 Osteoporosis Dementia The patient has a new ankle fracture and likely acute on chronic compression fractures at her lumbar spine. Her low back is really not giving her too much pain and I do not recommend surgical intervention or any further kyphoplasty at this point. I would not recommend further imaging at this point for her lumbar spine as she is not having new radiculopathy or significant pain. She doesn't multiple changes at her lumbar spine which should be continue to treat conservatively. We discussed the possibility of using a brace and they're declining at this point for her lumbar spine and I think that is okay. She may mobilize to her tolerance in terms of her lumbar spine from a spine surgery standpoint. At her right ankle she has new distal fibula fracture. She will be obtaining a boot for her right upper extremity. Currently she is in a well padded well molded short leg splint which is appropriate for her. It is okay for mobilize and she can start weightbearing as tolerated with the boot on. Certainly she will require significant assistance as she is already minimal and limited ambulator and need significant help with any transfers. I think rehab had [facility] will be a poor appropriate for her possibly transferring there tomorrow. At this point she is not planning any surgical intervention for her right ankle. The patient has other medical issues including significant dementia and she is continued to be followed by medicine. From a spine standpoint is okay for her to follow up in approximately 3 weeks' time for recheck evaluation of her lumbar spine to follow fractures as they heal. I discussed this with her and her at bedside and answered their questions best my ability. They're agreeable.
--- NOTE | 2016-10-13 13:44 | P.PN ---
Subjective This is an 89-year-old female one of Dr. Olvera with a previous medical history significant for hypertension and hypertensive cardiovascular disease, os process, multiple compression fracture with prior kyphoplasty, recurrent UTI, vascular dementia, patient was in her usual state of health about last Friday when she fell at home and bruised herself, her assisted her that time. Patient did not have any significant pain, yesterday the patient was going to the bathroom and while she was in the bathroom she stood up using the the assisted bars and her was trying to pull up her brief, where the patient lost strength in her leg and she sat on her right leg she suffered from significant pain at that time. Patient ended up coming to the ER at [facility] via EMS and she was found to have a right distal fibular fracture and multiple compression fracture in the back, patient was seen and evaluated by orthopedic surgery and spine surgery,it was recommended for the patient to be in a boot, and to see spine surgery on Friday to see the patient can be a candidate for cement kyphoplasty, patient also was found to have a UTI her urine was sent for culture and she was started on Rocephin 1 g IV piggyback every day, upon talking to the he stated that the patient has been dealing with urinary tract infections quite along with multiple resistant bacteria in the past . 10/13: Patient sitting up in a recliner today and her was at bedside, she will be seen and evaluated by Dr. son later on for possible kyphoplasty down the line. Objective - Vital Signs Vital signs: Vital Signs Temp 98.6 F 10/13/16 02:14 Pulse 94 10/13/16 02:14 Resp 16 10/13/16 02:14 BP 112/60 10/13/16 02:14 Pulse Ox 93 L 10/13/16 07:33 Intake & Output 10/12/16 10/13/16 10/13/16 18:59 06:59 18:59 Intake Total 900 Output Total 500 Balance 400 Weight 72.575 kg Intake: Intake, IV Titration 900 Amount Sodium Chloride 0.9% 1, 900 000 ml @ 100 mls/hr IV . Q10H ONE Rx#:[id number] Output: Urine 500 Straight 500 Other: Voiding Method Diaper Indwelling Catheter Incontinent # Voids 2 # Bowel Movements 1 - Exam - Constitutional General appearance: average body habitus, no acute distress - EENT Eyes: anicteric sclerae, EOMI, PERRLA, no ptosis, no scleral icterus, normal appearance ENT: hard of hearing, normal oropharynx, no thrush Ears: bilateral: normal - Neck Neck: no lymphadenopathy, normal ROM, no rigidity, no stridor, no thyromegaly Carotids: bilateral: upstroke normal Thyroid: bilateral: normal size - Respiratory Respiratory: bilateral: diminished, negative: dullness, rales, rhonchi, wheezing , prolonged expiration, prolonged inspiration - Cardiovascular Heart sounds: normal: S1, S2 Abnormal Heart Sounds: systolic murmur, no S3 Gallop, no S4 Gallop - Gastrointestinal General gastrointestinal: normal bowel sounds, soft, no splenomegaly, no tenderness, no umbilical hernia, no ventral hernia - Integumentary Integumentary: no cyanotic, normal, normal turgor - Neurologic Neurologic: CNII-XII intact - Musculoskeletal Musculoskeletal: generalized weakness, strength equal bilaterally - Psychiatric Psychiatric: A&O x's 3, appropriate affect, no intact judgment & insight - Labs CBC & Chem 7: 10/13/16 07:39 10/13/16 07:39 Labs: Abnormal Lab Results - Last 24 Hours (Table) 10/13/16 10/13/16 Range/Units 07:39 07:39 Hgb 10.9 L (11.4-16.0) gm/dL MCHC 30.3 L (31.0-37.0) g/dL Lymphocytes # 0.7 L (1.0-4.8) k/uL Alkaline Phosphatase 34 L (38-126) U/L Total Protein 6.0 L (6.3-8.2) g/dL Albumin 3.2 L (3.5-5.0) g/dL Microbiology - Last 24 Hours (Table) 10/11/16 18:11 Blood Culture - Preliminary Blood No Growth after 24 hours Assessment and Plan Plan: Assessment and plan: 1. Right distal fibular fracture. Likely patient would benefit from a Boot after discussion with orthopedic surgery, there is no indication for any surgical intervention at this point in time, continue day venous verbose prophylaxis with Lovenox 40 mg subcutaneously every 24 hours, continue current pain management, patient is comfortable. 2. Multiple lumbar vertebral fractures L1 L3 and L4. Patient will see Dr. Son for possible cement kyphoplasty. 3. Hypertension and hypertensive cardiovascular disease. Continue metoprolol 25 mg orally once every day. 4. Severe GERD with esophagitis. Continue with Protonix 40 mg orally once every day. 5. Hypothyroidism. Continue Synthroid 50 g orally once every day. 6. CVA. Continue patient on aspirin 81 mg orally once every day. 7. Rheumatoid arthritis by history not taken any DMARD. 8. Vascular dementia. Continue Namenda 5 mg orally twice every day. 9. Depression/anxiety. Continue sertraline 50 mg orally once every day. 10. UTI . Continue Rocephin until the final result of the culture. 11. Vitamin D deficiency. Continue vitamin D supplement. 12. DVT prophylaxis. Continue Lovenox 40 mg subcutaneously every 24 hours. 13. GI prophylaxis. Continue Protonix 40 mg orally once every day.
[2016-10-13] MEDS: CLOTRIMAZOLE/BETAMETH 1-0.05% CREAM 45 GM TUBE TOPICAL SCH (14:26)
[2016-10-13] MEDS: DOCUSATE 100 MG CAP PO SCH (14:26)
[2016-10-13] MEDS: NYSTATIN 100,000UNIT/GM CREAM 30 GM TUBE TOPICAL SCH (14:27)
[2016-10-14 01:30] VITALS: RESP 16
[2016-10-14] MEDS: NYSTATIN 100,000UNIT/GM CREAM 30 GM TUBE TOPICAL SCH ×2 (01:58→08:14)
[2016-10-14] MEDS: LEVOTHYROXINE 50 MCG TAB PO SCH (05:31)
[2016-10-14 07:25] VITALS: BP 140/67; PULSE 95; TEMP 98.3
[2016-10-14] MEDS: PANTOPRAZOLE 40 MG TABLET PO SCH (08:13)
[2016-10-14] MEDS: ENOXAPARIN 40 MG/0.4 ML SYRINGE SQ SCH (08:13)
[2016-10-14] MEDS: DOCUSATE 100 MG CAP PO SCH (08:13)
[2016-10-14] MEDS: METOPROLOL TARTRATE 25 MG TAB PO SCH (08:13)
[2016-10-14] MEDS: CHOLECALCIFEROL 400 UNIT TAB PO SCH (08:14)
[2016-10-14] MEDS: SERTRALINE 50 MG TAB PO SCH (08:14)
[2016-10-14] MEDS: MEMANTINE 5 MG TAB PO SCH (08:14)
[2016-10-14] MEDS: CLOTRIMAZOLE/BETAMETH 1-0.05% CREAM 45 GM TUBE TOPICAL SCH (08:14)
--- NOTE | 2016-10-14 12:38 | CDI ---
In responding to this query, please exercise your independent professional judgment. The [facility] Coding Staff and Clinical Documentation Specialists appreciate your assistance in clarifying documentation, maintaining compliance with coding guidelines, accurately documenting patients condition and capturing severity of illness. The fact that a question is asked does not imply that any particular answer is desired or expected. Communication forms are a method of clarifying documentation and are not made part of the Legal Health Record. Thank you in advance for your clarification. Last Revision, August 2015 Rashi Morejon [address] [place] [address] Documentation Clarification Form Date: 10/14/2016 12:25:00 PM From: Erin Marie CCS, CCDS Admit Date: 10/11/2016 5:53:00 PM Patient Name: Nayana Gleason Visit Number: [id number] Discharge Date: Dr. Cherie Son: Patient has been diagnosed with old compression fractures lumbar spine and a new compression fracture L1 and also a new right ankle fracture. History/Risk Factors: Osteoporosis, Osteopenia & hx of previous Kyphoplasty, frequent falls. Clinical Indications: Patient fell at home, has hx of frequent falls. X-Ray Results: Lumbar Spine: Degenerative 1st deg L5-S1 spondylolisthesis. Multiple compression fractures. Progression of compression fx L1. New fractures at L3 & L4. Treatment: IV fluid rate 100, IV Ms, IV Rocephin, IV Dilaudid. Equalizer boot ordered for ankle. Recommended back brace, patient & refused. No surgical intervention at this time. In your professional opinion, please specify the following: Etiology of old & new compression fracture(s): Traumatic Pathological (specify cause): Osteoporosis Other (please specify): Unable to determine Episode of care: Initial or Subsequent with delayed healing Sequela Please document in your progress notes and discharge summary in order to capture severity of illness and risk of mortality. Include clinical findings that support your diagnosis. FYI: Press F11 to launch patient chart Place X here if this finding has no clinical significance, is not applicable or if you are not able to provide any additional documentation. Thank You. MEÑO
--- NOTE | 2016-10-14 12:56 | P.DS ---
Providers Date of admission: 10/11/16 17:53 Expected date of discharge: 10/14/16 Attending physician: Junito Greenberg Primary care physician: [facility]: This is an 89-year-old female one of Dr. Olvera with a previous medical history significant for hypertension and hypertensive cardiovascular disease, os process, multiple compression fracture with prior kyphoplasty, recurrent UTI, vascular dementia, patient was in her usual state of health about last Friday when she fell at home and bruised herself, her assisted her that time. Patient did not have any significant pain, yesterday the patient was going to the bathroom and while she was in the bathroom she stood up using the the assisted bars and her was trying to pull up her brief, where the patient lost strength in her leg and she sat on her right leg she suffered from significant pain at that time. Patient ended up coming to the ER at [facility] via EMS and she was found to have a right distal fibular fracture and multiple compression fracture in the back, patient was seen and evaluated by orthopedic surgery and spine surgery,it was recommended for the patient to be in a boot, and to see spine surgery on Friday to see the patient can be a candidate for cement kyphoplasty, patient also was found to have a UTI her urine was sent for culture and she was started on Rocephin 1 g IV piggyback every day, upon talking to the he stated that the patient has been dealing with urinary tract infections quite along with multiple resistant bacteria in the past . 10/13: Patient sitting up in a recliner today and her was at bedside, she will be seen and evaluated by Dr. coats later on for possible kyphoplasty down the line. 10/14: Patient has been cleared for discharge by orthopedics. Patient will be switched to oral antibiotics for urinary tract infection with Klebsiella. Brace is to be ordered at [facility]. [facility] Cerrato. Discharge diagnoses: 1. Right distal fibular fracture 2. Multiple lumbar vertebral fractures L1 L3 and L4. 3. Hypertension and hypertensive cardiovascular disease. 4. Severe GERD with esophagitis. 5. Hypothyroidism. 6. CVA history 7. Rheumatoid arthritis by history not taking any DMARD. 8. Vascular dementia. 9. Depression recurrent and generalized anxiety. 10. Klebsiella UTI 11. Vitamin D deficiency. Discharge plan: [facility] Impression and plan of care have been directed as dictated by the signing physician. Sonja Dugan nurse practitioner acting as scribe for signing physician. Cc: Dr. Bear Olvera Patient Condition at Discharge: Good Plan - Discharge Summary New Discharge Prescriptions: Cefuroxime [Ceftin] 250 mg PO BID #14 tablet HYDROcodone/APAP 10-325MG [Muddy 10-325] 1 tab PO Q6H PRN #100 tab PRN Reason: Pain Discharge Medication List Acetaminophen Tab [Tylenol] 500 mg PO Q4H PRN 11/19/13 [History] Aspirin 81 mg PO HS 11/19/13 [History] Cholecalciferol [Vitamin D3] 400 unit PO DAILY@1200 11/19/13 [History] Docusate [Colace] 100 mg PO DAILY #30 capsule 11/19/13 [Rx] Levothyroxine Sodium [Synthroid] 50 mcg PO DAILY 11/19/13 [History] Memantine [Namenda] 5 mg PO BID 11/19/13 [History] Sertraline [Zoloft] 50 mg PO DAILY 11/19/13 [History] Clotrimazole/Betameth Cream [Lotrisone Cream] 1 applic TOPICAL DAILY 01/09/14 [ History] Dexlansoprazole [Dexilant] 60 mg PO DAILY 10/11/16 [History] Metoprolol Tartrate 25 mg PO DAILY 10/11/16 [History] Nystatin 100,000Unit/gm Cream [Mycostatin Cream] 1 applic TOPICAL BID 10/11/16 [ History] Cefuroxime [Ceftin] 250 mg PO BID #14 tablet 10/14/16 [Rx] HYDROcodone/APAP 10-325MG [Muddy 10-325] 1 tab PO Q6H PRN #100 tab 10/14/16 [Rx] Follow up Appointment(s)/Referral(s): Toni Perry PAC [PHYSICIAN MANAGER [place]] - 2 Weeks (Patient may follow-up with Toni Perry PA-C or Dr. James Coats at [facility] in 2 weeks following discharge. ) Bear Olvera DO [Primary Care Provider] - 1 Week (after discharge from [facility]) Activity/Diet/Wound Care/Special Instructions: 1. Patient may weight-bear as tolerated on the right lower extremity with her boot intact 2. Right lower extremity boot remain intact at all times except while bathing 3. Patient should avoid excessive lumbar bending, twisting, and lifting; no lifting greater than 10 pounds Discharge Disposition: TRANSFER TO SNF/ECF
--- NOTE | 2016-10-14 14:51 | P.PN ---
Progress Note - Text He is a very pleasant 89-year-old female who is seen and examined the bedside following evaluation for her multiple lumbar compression fracture deformities and right distal fibula fracture. Patient is known have some dementia. Patient is very pleasant at the bedside today and answers questions appropriately. She states since being seen examined yesterday, she is not currently experiencing any significant low back pain or right ankle pain. She continues to have her right lower extremity wrapped in an Vlad wrap. A boot for the right lower extremity has been ordered. Per nursing, the boot is scheduled to be delivered today. Patient has no new complaints. She is been eating without any significant difficulty. Her pain has been well-controlled. Patient is known to be mostly nonambulatory. Physical exam: Patient is awake, alert, and oriented 3; patient is known to have dementia but is able to answer questions appropriately this morning Vital signs stable Good chest excursion with deep inspiration and expiration Abdomen soft nontender Examination of lumbar spine reveals skin is intact with no abrasions, lacerations, or bruises; no erythema, purulence or signs of infection No significant pain with palpation of the thoracic or lumbar spine Dorsiflexion, plantarflexion, and extensor hallucis longus positive sustained on the left Full range of motion of the left lower extremity without difficulty Right lower extremity currently wrapped in Vlad wrap No pain with palpation or with range of motion of the right hip or right knee Patient is able to wiggle toes of the right lower extremity without difficulty Neurovascularly intact lateral lower extremities No lower extremity hyperreflexia bilaterally No signs or symptoms of DVT; no calf pain No pain with internal and external rotation of the hips bilaterally Assessment: Status post fall 2 Right distal fibular fracture minimally displaced due to trauma Right ankle pain due to ankle fracture Multiple lumbar compression fracture deformities with likely various degrees of healing at L1, L3, and L4 Evidence of old compression fracture deformity at L2 with kyphoplasty L5-S1 spondylolisthesis Osteopenia Dementia Plan: 1. Patient is progressing in terms of her low back pain with known multiple compression fracture deformities. Bracing has been declined by the family. At this time we'll continue with conservative treatment in regards to her lumbar spine and are not currently planning for any surgical intervention. I think it is okay for the patient to participate in activities as tolerated while avoiding excessive activities regards to her lumbar spine. She should avoid excessive bending, twisting, lifting. We'll plan have her follow-up in approximately 2 weeks for further evaluation. 2. In regards to her right distal fibula minimally displaced fracture, we are currently waiting for a boot for the right lower extremity to be delivered and fitted appropriately. Once this boot has been delivered and fitted appropriately, she may weight-bear as tolerated on the right lower extremity. She should continue to keep this boot intact at all times except while bathing. We will plan to reevaluate her ankle fracture in approximately 2 weeks when she follows up for further evaluation for her lumbar spine. She'll be clear for discharge once this boot has been delivered and fitted appropriately. 3. From an orthopedic standpoint, patient is clear for discharge once cleared by medicine and boot has been fitted appropriately. Patient will most likely be discharged to rehabilitation facility assisted at discharge. 4. Medicine to continue following the patient 5. Following discharge, patient may follow-up with Toni Perry PA-C or Dr. James Son at [facility] in approximately 2 weeks for further evaluation of both her lumbar spine and right distal fibular fracture 5. I have discussed this patient in detail with Dr. James Son and he agrees with this plan
--- NOTE | 2016-10-17 08:41 | CDI ---
In responding to this query, please exercise your independent professional judgment. The [facility] Coding Staff and Clinical Documentation Specialists appreciate your assistance in clarifying documentation, maintaining compliance with coding guidelines, accurately documenting patients condition and capturing severity of illness. The fact that a question is asked does not imply that any particular answer is desired or expected. Communication forms are a method of clarifying documentation and are not made part of the Legal Health Record. Thank you in advance for your clarification. Last Revision, August 2015 Rashi Morejon [address] [place] [address] Documentation Clarification Form Date: 10/14/2016 12:25:00 PM Revised: 10/17/2016 From: Erin Marie, [facility], CCDS Admit Date: 10/11/2016 5:53:00 PM Patient Name: Nayana Gleason Visit Number: [id number] Discharge Date: 10/14/2016 Dr. Cherie Son and/or Fransisco Lim: Patient has been diagnosed with old compression fractures lumbar spine and a new compression fracture L1 and also a new right ankle fracture. History/Risk Factors: Osteoporosis, Osteopenia & hx of previous Kyphoplasty, frequent falls. Clinical Indications: Patient fell at home, has hx of frequent falls. X-Ray Results: Lumbar Spine: Degenerative 1st deg L5-S1 spondylolisthesis. Multiple compression fractures. Progression of compression fx L1. New fractures at L3 & L4. Treatment: IV fluid rate 100, IV Ms, IV Rocephin, IV Dilaudid. Equalizer boot ordered for ankle. Recommended back brace, patient & refused. No surgical intervention at this time. In your professional opinion, please specify the following: Etiology of old & new compression fracture(s): Traumatic Pathological (specify cause): Osteoporosis Other (please specify): Unable to determine Episode of care: Initial or Subsequent with delayed healing Sequela Please document in your progress notes and discharge summary in order to capture severity of illness and risk of mortality. Include clinical findings that support your diagnosis. FYI: Press F11 to launch patient chart Place X here if this finding has no clinical significance, is not applicable or if you are not able to provide any additional documentation. Thank You. MEÑO
--- NOTE | 2016-10-19 08:41 | P.PN ---
Progress Note - Text the patient sustained a compression fracture and ankle fracture which are acute and traumatic due to her fall.
== END 2016-10-14 15:23 | DRG 563 ==
LOC: EC 15:15 → 3SUR 17:53
PROVIDERS: ADMIT Internal Medicine Geriatric Medicine; ATTEND Internal Medicine Geriatric Medicine
DX: S82.831A Other fracture of upper and lower end of right fibula, initial encounter for closed fracture (principal); M48.56XA Collapsed vertebra, not elsewhere classified, lumbar region, initial encounter for fracture; I11.9 Hypertensive heart disease without heart failure; N39.0 Urinary tract infection, site not specified; F01.50 Vascular dementia, unspecified severity, without behavioral disturbance, psychotic disturbance, mood disturbance, and anxiety; B96.1 Klebsiella pneumoniae [K. pneumoniae] as the cause of diseases classified elsewhere; M81.0 Age-related osteoporosis without current pathological fracture; E03.9 Hypothyroidism, unspecified; E55.9 Vitamin D deficiency, unspecified; F32.9 Major depressive disorder, single episode, unspecified; F41.1 Generalized anxiety disorder; K21.0 Gastro-esophageal reflux disease with esophagitis; M06.9 Rheumatoid arthritis, unspecified; R29.6 Repeated falls; Z79.82 Long term (current) use of aspirin; Z79.899 Other long term (current) drug therapy; Z86.73 Personal history of transient ischemic attack (TIA), and cerebral infarction without residual deficits; Z87.440 Personal history of urinary (tract) infections; Z87.442 Personal history of urinary calculi
CPT/HCPCS: 36415; 71020; 72110; 72170; 80053; 81001; 82550; 82553; 83735; 84100; 84443; 84484; 85025; 85610; 85730; 87040; 87077; 87086; 87186; 93005; 94760; 96361; 96374; 99285